=== PATIENT | female | born 1960 | race African-American/Black ===

== ENCOUNTER 2018-08-02 13:23 | Outpatient (CLI) | payer MEDICARE, OTHER ==
--- NOTE | 2018-08-02 13:46 | RAD ---
KUB: HISTORY: Frequent urinary tract infections. FINDINGS: Moderate fecal material throughout the colon. Disk osteophytosis changes at L1-L2. No overt calculu s. No evidence for large or small bowel obstruction. IMPRESSION: No significant acute process in the abdomen. POS: OFF
== END 2018-08-02 13:24 | disposition home or self-care (01) ==
LOC: NAV RAD 13:23
PROVIDERS: ATTEND Internal Medicine Rheumatology
DX: N39.0 Urinary tract infection, site not specified (principal); Z79.899 Other long term (current) drug therapy
CPT/HCPCS: 74018